=== PATIENT | female | born 1995 | race Asian ===

== ENCOUNTER 2021-07-28 00:19 | Emergency (ER) | payer OTHER ==
[~2021-07-28] VITALS: Ht 167.6 cm; Wt 85.0 kg
[2021-07-28] MEDS ORDERED: LIDOCAINE HCL/PF 1% 10 MG/ML 5ML VIAL INFIL ONE (01:00)
[2021-07-28] MEDS ORDERED: BACITRACIN ZINC OINT UDPKT TOP ONE (01:00)
[2021-07-28] MEDS ORDERED: LIDOCAINE HCL 1% 10 MG/ML 10ML VIAL IJ NR (01:15)
[2021-07-28 01:45] VITALS: BP 125/85
== END 2021-07-28 02:00 | disposition home or self-care (01) ==
LOC: ER 00:19
DX: S01.112A Laceration without foreign body of left eyelid and periocular area, initial encounter (principal); W18.39XA Other fall on same level, initial encounter; Y93.89 Activity, other specified; Y92.89 Other specified places as the place of occurrence of the external cause; Y99.8 Other external cause status
CPT/HCPCS: 81025; 99282; J3490